=== PATIENT | male | born 1975 | race Caucasian/White ===

== ENCOUNTER 2024-06-13 09:43 | Emergency (ER) | payer MEDICAID ==
[~2024-06-13] VITALS: Ht 175.3 cm; Wt 96.7 kg
[2024-06-13] MEDS ORDERED: LIDO700A32 TOP (11:16)
[2024-06-13] MEDS ORDERED: MELO-100 PO (11:16)
[2024-06-13] MEDS: ketorolac trometh 30MG/ML vial 30 MG/ML VIAL IM ONE (11:29)
[2024-06-13 11:33] VITALS: BP 136/76; PULSE 88; RESP 16; TEMP 98.8; O2SAT 99
== END 2024-06-13 11:37 | disposition home or self-care (01) ==
LOC: ER 09:44
DX: S20.211A Contusion of right front wall of thorax, initial encounter (principal); W11.XXXA Fall on and from ladder, initial encounter; Y93.89 Activity, other specified; Y92.89 Other specified places as the place of occurrence of the external cause; Y99.8 Other external cause status
CPT/HCPCS: 71101; 96372; 99283; J1885

== ENCOUNTER 2024-08-21 14:15 | Emergency (ER) | payer MEDICAID, OTHER ==
[~2024-08-21] VITALS: Ht 175.3 cm; Wt 97.5 kg
[~2024-08-21 14:15] MED LIST: LIDO700A32 TOP; MELO-100 PO
[2024-08-21 14:43] VITALS: BP 130/65; PULSE 78; O2SAT 96
[2024-08-21] MEDS ORDERED: CYCL-1 PO (16:32)
[2024-08-21] MEDS: cyclobenzaprine 10mg tablet PO ONE (16:46)
[2024-08-21 16:48] VITALS: RESP 16
[2024-08-21] MEDS: ketorolac trometh 30MG/ML vial 30 MG/ML VIAL IM ONE (16:48)
[2024-08-21 17:15] VITALS: TEMP 98.3
== END 2024-08-21 17:16 | disposition home or self-care (01) ==
LOC: ER 14:16
DX: S39.012A Strain of muscle, fascia and tendon of lower back, initial encounter (principal); G89.29 Other chronic pain; Z79.2 Long term (current) use of antibiotics; Z79.899 Other long term (current) drug therapy; X50.0XXA Overexertion from strenuous movement or load, initial encounter; X50.9XXA Other and unspecified overexertion or strenuous movements or postures, initial encounter; Y93.89 Activity, other specified; Y92.89 Other specified places as the place of occurrence of the external cause; Y99.8 Other external cause status
CPT/HCPCS: 72100; 96372; 99283; J1885